=== PATIENT | male | born 1970 | race Caucasian/White ===

== ENCOUNTER 2022-04-12 16:45 | Emergency (ER) | payer MEDICAID ==
[~2022-04-12] VITALS: Ht 188 cm; Wt 83.0 kg
[2022-04-12 16:56] VITALS: BP 117/69
[2022-04-12] MEDS ORDERED: FLUO10CA25 PO (16:59)
== END 2022-04-12 18:50 | disposition left against medical advice (07) ==
LOC: ER 16:45
DX: Z53.21 Procedure and treatment not carried out due to patient leaving prior to being seen by health care provider (principal)